=== PATIENT | male | born 1965 | race African-American/Black ===

== ENCOUNTER 2022-10-01 13:58 | Outpatient (REF) | payer BC, SELFPAY ==
[2022-10-01 16:41] LABS: Urine Cytology See Pathology rpt
== END 2022-10-01 13:59 | disposition home or self-care (01) ==
LOC: HO.LAB 13:58
PROVIDERS: PCP Family Medicine; Visit Provider Nurse Practitioner Family
DX: N40.0 Benign prostatic hyperplasia without lower urinary tract symptoms (principal); R33.9 Retention of urine, unspecified; R31.29 Other microscopic hematuria
CPT/HCPCS: 51798; 88112

== ENCOUNTER 2022-11-19 13:53 | Outpatient (REF) | payer BC, SELFPAY ==
--- NOTE | ~2022-11-19 | US_ITS ---
EXAMINATION: US RETROPERITONEAL COMPLETE (RENAL) CLINICAL INFORMATION: Benign prostatic hyperplasia without urinary tract symptoms. COMPARISON: None available. TECHNIQUE: Real-time imaging of the kidneys and bladder. FINDINGS: RIGHT KIDNEY: 13.1 x 6.3 x 6.0 cm (SAG x AP x TRV). The kidney is normal in size, contour, and echogenicity. Renal cortical thickness is normal. No calculi or focal parenchymal lesions. No hydronephrosis. LEFT KIDNEY: 11.4 x 5.9 x 5.8 cm (SAG x AP x TRV). The kidney is normal in size, contour, and echogenicity. Renal cortical thickness is normal. No calculi or focal parenchymal lesions. No hydronephrosis. BLADDER: Well distended and normal. Bilateral ureteral jets are demonstrated. Prevoid bladder volume is 366 mL. Postvoid bladder volume is 92 mL. ADDITIONAL FINDINGS: The prostate is enlarged measuring 60.4 mL. US/US retroperitoneal comp IMPRESSION: 1. Normal-appearing kidneys. 2. Enlarged 60.4 mL prostate with large 92 mL postvoid residual.
== END 2022-11-19 13:54 | disposition home or self-care (01) ==
LOC: HO.US 13:53
PROVIDERS: PCP Family Medicine; Visit Provider Nurse Practitioner Family
DX: N40.0 Benign prostatic hyperplasia without lower urinary tract symptoms (principal)
CPT/HCPCS: 76770

== ENCOUNTER 2022-12-06 09:34 | Outpatient (REF) | payer BC, SELFPAY ==
[2022-12-06 11:03] LABS: Prostate Specific Antigen 3.56 ng/mL (<0.05-4.0)
== END 2022-12-06 09:35 | disposition home or self-care (01) ==
LOC: HO.LAB 09:34
PROVIDERS: PCP Family Medicine; Visit Provider Nurse Practitioner Family
DX: N40.0 Benign prostatic hyperplasia without lower urinary tract symptoms (principal); Z12.5 Encounter for screening for malignant neoplasm of prostate
CPT/HCPCS: 36415; 84153

== ENCOUNTER → 2022-12-24 11:35 | Outpatient (BNVA) | payer BC, SELFPAY | PROVIDERS: PCP Family Medicine; Visit Provider Nurse Practitioner Family | DX: N40.1 Benign prostatic hyperplasia with lower urinary tract symptoms (principal); R33.8 Other retention of urine | CPT/HCPCS: 51798 ==

== ENCOUNTER 2023-04-29 09:15 | Outpatient (REF) | payer BC, SELFPAY ==
[2023-04-29 11:44] LABS: PSA,Total (Free>4and<10) 3.13 ng/mL (0.00-4.00)
== END 2023-04-29 09:16 | disposition home or self-care (01) ==
LOC: HO.LAB 09:15
PROVIDERS: PCP Family Medicine; Visit Provider Nurse Practitioner Family
DX: Z12.5 Encounter for screening for malignant neoplasm of prostate (principal); N40.0 Benign prostatic hyperplasia without lower urinary tract symptoms; R33.9 Retention of urine, unspecified; R31.29 Other microscopic hematuria
CPT/HCPCS: 36415; 51798; 81003; 84153

== ENCOUNTER 2023-04-29 15:36 | Outpatient (AMB) | payer BC, SELFPAY ==
--- NOTE | 2023-04-29 15:49 | A.OFFVIS_ITS ---
Intake Intake Visit Reasons: 4m/PSA Intake Note: Patient is present for follow up BPH/retention/micro hematuria/labs Urology Medications: none Blood Thinner: none PVR: 0ml's Global Compensation Director Required: No Accompanied by: Self / Same As Patient Allergies No Known Allergies Allergy (Verified 04/30/23 15:20) Medication List - Last Reconciled 04/30/23 by ISA Bonilla lisinopril 5 mg PO DAILY meloxicam 15 mg PO DAILY HPI HPI Comments History of Present Illness Details Nile is a pleasant 58 year old male patient of Dr. Peterson. He has a past medical history of BPH, ED, hypertension, and insomnia. He presents to the office today for a follow up of his feelings of incomplete bladder emptying and urinary hesitancy. In discussion with the patient today he reports to be doing and feeling well. Previous workup has included retroperitoneal ultrasound that noted bilateral kidneys with no stones, lesions, and no hydronephrosis. The bladder is well distended and normal. Bilateral ureteral jets are demonstrated. Prevoid bladder volume is 366ml's. Postvoid bladder volume is 92ml's. The prostate is enlarged measuring 60.4ml's. PSAs are as follows: 12/19--3.6. 04/20-- 3.1 He discusses feeling original lower urinary tract symptoms were related to his increase in weight gain and borderline diabetes. He discusses he continues to attempt to lose weight and have healthier eating habits. He has a longstanding family history of prostate cancer. Discussed continuing to monitor verses prostate biopsy. Discussed risks and benefits of surveillance monitoring verses prostate biopsy. At this time patient wishes to continue with surveillance monitoring. He otherwise denies any bothersome urinary issues or concerns at this time. In office urinalysis results reviewed with the patient. PVR-0ml's. PFSH Medical History BPH (benign prostatic hyperplasia) Erectile dysfunction Hypertension Insomnia Internal hemorrhoids Onychomycosis Surgical History History of vasectomy Hx of tonsillectomy Family History Mother Leukemia Father Lung cancer Review of Systems Const Reports as per HPI Eyes Reports no additional complaints ENT Reports no additional complaints Card Reports no additional complaints Resp Reports no additional complaints GI Reports no additional complaints Reports as per HPI Musc Reports no additional complaints Neuro Reports no additional complaints Psych Reports no additional complaints Endo Reports as per HPI Mehdi/Lymph Reports no additional complaints Aller/Immun Reports no additional complaints Physical Exam Const General: cooperative, healthy appearing, comfortable, no acute distress, well developed, alert and awake Nutritional Appearance: overweight Orientation/consciousness: patient oriented x3 Limitations: no limitations HEENT Head: Yes normal to inspection, Yes normocephalic and Yes atraumatic Ears: hearing grossly normal bilaterally Eyes General: appearance normal, both eyes and all related structures Neck Neck: Yes normal visual inspection and Yes trachea midline Chest Chest palpation & inspection: normal inspection of the chest Resp Effort & Inspection: normal respiratory effort and able to speak in complete sentences Cardio Rate: regular rate GI Inspection: Yes normal to inspection Other: TIM- smooth, no indurated areas, nodules, or masses palpated. General: Yes no CVA tenderness Back/Spine/Pelvis Back: no CVA tenderness Neuro General: patient oriented x3 Extrem General: Yes normal to inspection Psych Appearance: grossly normal and well kempt Mental Status: mental status grossly normal Speech and movement: Normal speech and movement present and Clear speech present Affect: normal affect Attitude: cooperative Thought process: Normal thought process present Thought content: Normal thought content present Insight: Good insight present (Psych) Judgement: Good judgement present (Psych) Office Procedures Post Void Residual Post Residual Void Post Void Residual (PVR): 0 [id number] Void Residual by ultrasound Results AMB Urinalysis, Automated UA Leukoctes 0 Yesenia/uL Last Edit by Conrado Blanca on 04/29/23 16:04 UA Nitrite Last Edit by Mirakl Rianna on 04/29/23 16:04 UA Urobilinogen 0.2 mg/dL Last Edit by Mirakl Rianna on 04/29/23 16:04 UA Protein 0 mg/dL Last Edit by [facility] Bl[facility] on 04/29/23 16:04 UA pH 6.5 Last Edit by Conrado Blanca on 04/29/23 16:04 UA Blood 25 [place]/uL Last Edit by [facility] on 04/29/23 16:04 UA Specific [employer] 1.015 Last Edit by Conrado Blanca on 04/29/23 16:04 UA Ketone Negative Last Edit by Conrado Robertobrendan on 04/29/23 16:04 UA Bilirubin 0 mg/dL Last Edit by Conrado Robertobrendan on 04/29/23 16:04 UA Glucose 0 mg/dL Last Edit by Conrado Robertobrendan on 04/29/23 16:04 Results Reviewed Results Reviewed: Laboratory Last Values Urine pH (Auto) 6.5 04/29/23 15:54 Specific [employer] (Auto) 1.015 04/29/23 15:54 Urine Protein (Auto) 0 mg/dL 04/29/23 15:54 Glucose (UA)(Auto) 0 mg/dL 04/29/23 15:54 Urine Ketones (Auto) Negative 04/29/23 15:54 Urine Blood (Auto) 25 [place]/uL 04/29/23 15:54 Urine Bilirubin (Auto) 0 mg/dL 04/29/23 15:54 Urine Urobilinogen (Auto) 0.2 mg/dL 04/29/23 15:54 Leukocyte Esterase (Auto) 0 Yesenia/uL 04/29/23 15:54 Assessment & Plan Assessment & Plan (1) Microscopic hematuria: Code(s): R31.29 - Other microscopic hematuria (2) Enlarged prostate: Code(s): N40.0 - Benign prostatic hyperplasia without lower urinary tract symptoms Plan In office urinalysis results reviewed with the patient today; as noted above; microscopic hematuria noted however cytology from last office visit 12/19--Negative for high-grade urothelial carcinoma. Recent PSA results reviewed with the patient today; as noted above. Discussed surveillance monitoring versus prostate biopsy in the setting of family history of prostate cancer in PSA ranging between 3.6 and 3.1. Will continue with surveillance monitoring Patient denies any bothersome urinary issues or concerns at this time. PSA in 6 months Follow-up in 6 months with lab to be completed prior; or sooner with any issues, concerns, and or questions. Orders: Orders PSA,Total (Free>4and<10) 6 Months N40.0 - Benign prostatic hyperplasia without lower urinary tract symptoms, R97.20 - Elevated prostate specific antigen [PSA] AMB Urinalysis Automated 04/29/23 Z13.9 - Encounter for screening, unspecified AMB Post Void Residual by ultrasound 04/29/23 R33.9 - Retention of urine, unspecified Patient Instructions: The patient had an opportunity to ask questions regarding the treatment plan. All questions were answered. Physical exam, labs, and imaging were discussed and reviewed in detail. As well as risks, benefits, and discussion of treatment choices. No major barriers to understanding were identified. The patient expressed understanding and agreement with the above treatment plan. The patient was made aware they should contact our office by phone for worsening of their current condition, the appearance of new symptoms, or with any questions or concerns. Compliance is encouraged with any medications and follow up testing that is ordered. It is a privilege to be allowed the opportunity to participate in? your urological care.? Again, if you have any questions or concerns If you have any questions or concerns please do not hesitate to contact me. The office is [phone]. This note is constructed using voice recognition software. While every effort has been made to ensure accuracy senior production supervisor errors may have been included. Yours sincerely, ISA Bonilla Coding Level of Care Code Est Pt Level 3 (49320) Diagnoses Microscopic hematuria R31.29 Enlarged prostate N40.0 CPT Codes Post Residual Void - PVR CPT Code: 42937-Wnjj Void Residual by ultrasound ([id number])
== END 2023-04-29 16:31 | disposition home or self-care (01) ==
PROVIDERS: PCP Family Medicine; Visit Provider Nurse Practitioner Family
DX: R31.29 Other microscopic hematuria (principal); N40.0 Benign prostatic hyperplasia without lower urinary tract symptoms
CPT/HCPCS: 99213

== ENCOUNTER 2023-10-31 10:40 | Outpatient (AMB) | payer BC, SELFPAY ==
--- NOTE | 2023-10-31 10:51 | A.OFFVIS_ITS ---
Intake Intake Visit Reasons: 6m/PVR Intake Note: Patient presents today for follow up BPH/retention/micro hematuria/labs PSA: 3.7 Urology Medications: none Blood Thinner: none PVR: 21ml's Biometrics Specialist Required: No Accompanied by: Self / Same As Patient Allergies No Known Allergies Allergy (Verified 10/31/23 21:24) Medication List - Last Reconciled 10/31/23 by STEVE Bonilla- lisinopril 5 mg PO DAILY meloxicam 15 mg PO DAILY HPI HPI Comments History of Present Illness Details Nile is a pleasant 58 year old male patient of Dr. Peterson. He has a past medical history of BPH, ED, hypertension, and insomnia. He presents to the office today for a follow up of his feelings of incomplete bladder emptying and urinary hesitancy. In discussion with the patient today he reports to be doing and feeling well. Recent PSA results reviewed with the patient today and trended below. Previous workup has included retroperitoneal ultrasound that noted bilateral kidneys with no stones, lesions, and no hydronephrosis. The bladder is well distended and normal. Bilateral ureteral jets are demonstrated. Prevoid bladder volume is 366ml's. Postvoid bladder volume is 92ml's. The prostate is enlarged measuring 60.4ml's. PSAs are as follows: 12/19--3.6. 04/20--3.1 10/22--3.7 He discusses feeling original lower urinary tract symptoms were related to his increase in weight gain and borderline diabetes. He discusses how he continues to attempt to lose weight and have healthier eating habits. He also discusses going to the gym 3-5 times per week. He has a longstanding family history of prostate cancer. Discussed at length potential causes of elevated PSA. Discussed continuing to monitor verses prostate biopsy verses attempting to obtain MRI for further assessment evaluation. Discussed risks and benefits of these treatment options. He does report at times to have nocturia and urinary frequency however feels these symptoms very and do not find them bothersome at this time. He otherwise denies incontinence, hematuria, dysuria, foul smelling urine, changes to urinary stream, flank pain, fever, and or chills. He is happy with his current voiding parameters. In office urinalysis results reviewed with the patient. Microscopic hematuria noted; urine cytology 10/21--Negative for high- grade urothelial carcinoma. PVR-21ml's. TIM offered however deferred. [facility] Medical History Onychomycosis Erectile dysfunction Internal hemorrhoids Insomnia Hypertension BPH (benign prostatic hyperplasia) Surgical History History of vasectomy Hx of tonsillectomy Family History Mother Leukemia Father Lung cancer Review of Systems Const Reports as per HPI Eyes Reports no additional complaints ENT Reports no additional complaints Card Reports no additional complaints Resp Reports no additional complaints GI Reports no additional complaints Reports as per HPI Musc Reports no additional complaints Neuro Reports no additional complaints Psych Reports no additional complaints Endo Reports as per HPI Mehdi/Lymph Reports no additional complaints Aller/Immun Reports no additional complaints Physical Exam Const General: cooperative, healthy appearing, comfortable, no acute distress, well developed, alert and awake Nutritional Appearance: overweight Orientation/consciousness: patient oriented x3 Limitations: no limitations HEENT Head: Yes normal to inspection, Yes normocephalic and Yes atraumatic Ears: hearing grossly normal bilaterally Eyes General: appearance normal, both eyes and all related structures Neck Neck: Yes normal visual inspection and Yes trachea midline Chest Chest palpation & inspection: normal inspection of the chest Resp Effort & Inspection: normal respiratory effort and able to speak in complete sentences Cardio Rate: regular rate GI Inspection: Yes normal to inspection Other: TIM- smooth, no indurated areas, nodules, or masses palpated. General: Yes no CVA tenderness Back/Spine/Pelvis Back: no CVA tenderness Neuro General: patient oriented x3 Extrem General: Yes normal to inspection Psych Appearance: grossly normal and well kempt Mental Status: mental status grossly normal Speech and movement: Normal speech and movement present and Clear speech present Affect: normal affect Attitude: cooperative Thought process: Normal thought process present Thought content: Normal thought content present Insight: Fair insight present (Psych) Judgement: Fair judgement present (Psych) Office Procedures Post Void Residual Post Residual Void Post Void Residual (PVR): [id number] Void Residual by ultrasound Results AMB Urinalysis, Automated UA Leukoctes 0 [place]/uL Last Edit by Conrado Blanca on 10/31/23 11:15 UA Nitrite Negative Last Edit by Conrado Blanca on 10/31/23 11:15 UA Urobilinogen 0.2 mg/dL Last Edit by Conrado Blanca on 10/31/23 11:15 UA Protein 15 mg/dL Last Edit by Conrado Blanca on 10/31/23 11:15 UA pH 6.0 Last Edit by Conrado Blacna on 10/31/23 11:15 UA Blood 25 [place]/uL Last Edit by Conrado Blanca on 10/31/23 11:15 UA Specific [employer] 1.020 Last Edit by Conrado Blanca on 10/31/23 11:15 UA Ketone Negative Last Edit by Conrado Blanca on 10/31/23 11:15 UA Bilirubin 0 mg/dL Last Edit by Conrado Blanca on 10/31/23 11:15 UA Glucose 0 mg/dL Last Edit by Conrado Blanca on 10/31/23 11:15 Results Reviewed Results Reviewed: Laboratory Last Values Urine pH (Auto) 6.0 10/31/23 10:52 Specific [employer] (Auto) 1.020 10/31/23 10:52 Urine Protein (Auto) 15 mg/dL 10/31/23 10:52 Glucose (UA)(Auto) 0 mg/dL 10/31/23 10:52 Urine Ketones (Auto) Negative 10/31/23 10:52 Urine Blood (Auto) 25 [place]/uL 10/31/23 10:52 Urine Nitrite (Auto) Negative 10/31/23 10:52 Urine Bilirubin (Auto) 0 mg/dL 10/31/23 10:52 Urine Urobilinogen (Auto) 0.2 mg/dL 10/31/23 10:52 Leukocyte Esterase (Auto) 0 Yes[place]/uL 10/31/23 10:52 Assessment & Plan Assessment & Plan (1) Enlarged prostate: Code(s): N40.0 - Benign prostatic hyperplasia without lower urinary tract symptoms (2) Elevated PSA: Code(s): R97.20 - Elevated prostate specific antigen [PSA] Plan In office urinalysis results reviewed with the patient today; as noted above PVR 21 mL. Discussed at length potential causes for elevated PSA Discussed further treatment options with surveillance monitoring verses prostate biopsy verses MRI of the prostate; risks and benefits of these interventions were discussed at length. Will obtain redraw of PSA with no sex the night before, no caffeine morning of, no heavy lifting 1-2 days prior. Will attempt to obtain MRI of the prostate for further assessment evaluation. Patient currently denies any bothersome urinary issues or concerns. TIM offered however deferred. Follow-up in 1-2 months with imaging and labs to be completed prior; or sooner with any issues, concerns, and or questions Orders: Orders AMB Urinalysis Automated Today Z13.9 - Encounter for screening, unspecified AMB Post Void Residual by ultrasound Today R33.9 - Retention of urine, unspecified Prostate Specific Antigen Today N40.0 - Benign prostatic hyperplasia without lower urinary tract symptoms MR pelvis wo/w con Today N40.0 - Benign prostatic hyperplasia without lower urinary tract symptoms, R97.20 - Elevated prostate specific antigen [PSA] Urine Cytology Today R31.29 - Other microscopic hematuria Patient Instructions: The patient had an opportunity to ask questions regarding the treatment plan. All questions were answered. Physical exam, labs, and imaging were discussed and reviewed in detail. As well as risks, benefits, and discussion of treatment choices. No major barriers to understanding were identified. The patient expressed understanding and agreement with the above treatment plan. The patient was made aware they should contact our office by phone for worsening of their current condition, the appearance of new symptoms, or with any questions or concerns. Compliance is encouraged with any medications and follow up testing that is ordered. It is a privilege to be allowed the opportunity to participate in? your urological care.? Again, if you have any questions or concerns If you have any questions or concerns please do not hesitate to contact me. The office is [phone]. This note is constructed using voice recognition software. While every effort has been made to ensure accuracy pillowcase cutter errors may have been included. Yours sincerely, ISA Bonilla Coding Level of Care Code Est Pt Level 4 (04460) Diagnoses Enlarged prostate N40.0 Elevated PSA R97.20 CPT Codes Post Residual Void - PVR CPT Code: 88628-Wbnz Void Residual by ultrasound ([id number]) Time Spent (min) 35
== END 2023-10-31 11:31 | disposition home or self-care (01) ==
PROVIDERS: PCP Family Medicine; Visit Provider Nurse Practitioner Family
DX: N40.0 Benign prostatic hyperplasia without lower urinary tract symptoms (principal); R97.20 Elevated prostate specific antigen [PSA]
CPT/HCPCS: 99214

== ENCOUNTER 2023-10-31 10:40 | Outpatient (REF) | payer BC, SELFPAY ==
[2023-10-31 16:36] LABS: Urine Cytology See Pathology rpt
== END 2023-10-31 10:41 | disposition home or self-care (01) ==
LOC: HO.LNP 10:40
PROVIDERS: PCP Family Medicine; Visit Provider Nurse Practitioner Family
DX: N40.0 Benign prostatic hyperplasia without lower urinary tract symptoms (principal); R97.20 Elevated prostate specific antigen [PSA]; R31.29 Other microscopic hematuria
CPT/HCPCS: 51798; 81003; 88112

== ENCOUNTER 2023-11-24 13:57 | Outpatient (AMB) | payer BC, SELFPAY ==
--- NOTE | 2023-11-24 14:29 | MHC.OFFVIS ---
Intake Intake Visit Reasons: 1m/MRI/PSA Intake Note: Patient presents today for a follow up on MRI/PSA Meds- D/C Meloxicam Allergies to Antibiotic- No Known Allergies Blood Thinner- None Post Void Residual: initial 239 however patient second attempt to void 0ml's Print Decorator Required: No Accompanied by: Allergies No Known Allergies Allergy (Verified 11/24/23 21:30) Medication List - Last Reconciled 11/24/23 by STEVE Bonilla- lisinopril 5 mg PO DAILY sulfamethoxazole-trimethoprim 800-160 mg (Bactrim DS) 1 tab PO BID 14 days HPI HPI Comments History of Present Illness Details Nile is a pleasant 58 year old male patient of Dr. Peterson who was accompanied by his at today's office visit. He has a past medical history of BPH, ED, hypertension, and insomnia. He presents to the office today for a follow up of his feelings of incomplete bladder emptying, urinary hesitancy and elevated PSA. Of note, patient was seen approximately 3 weeks ago at which time a MRI of the prostate was ordered as well as redraw of PSA was ordered for further assessment evaluation. These results reviewed with the patient today. Minimal scattered linear and wedge-shaped areas T2 hypointensity without corresponding was significant restricted diffusion are most compatible with changes of chronic prostatitis. No masslike lesion or areas of significant restricted diffusion or abnormal perfusion are appreciated. Small indeterminate lesion in the left transitional zone base PI-RADS 3. PSAs are as follows: 12/19--3.6. 04/20--3.1 10/22--3.7 11/19--9.2 In discussion with the patient today he reports to be doing and feeling well. Previous workup has included retroperitoneal ultrasound that noted bilateral kidneys with no stones, lesions, and no hydronephrosis. The bladder is well distended and normal. Bilateral ureteral jets are demonstrated. Prevoid bladder volume is 366ml's. Postvoid bladder volume is 92ml's. The prostate is enlarged measuring 60.4ml's. He reports noting ongoing feelings of incomplete bladder emptying and urinary hesitancy. However, he reports since his last office visit here approximately 2 weeks ago he has been experiencing increased episodes of urinary urgency and frequency as well as nocturia. Discussed bump in PSA. Discussed at length potential causes for elevated PSA. Discussed bump in PSA likely related to prostatitis given recent increase in lower urinary tract symptoms. He discusses going to the gym 3-5 times per week however has recently strained his back and has since been on prednisone. Discussed further treatment options of elevated PSA with targeted prostate biopsy verses surveillance monitoring. Discuss treatment for presumed prostatitis. He otherwise denies incontinence, hematuria, dysuria, foul smelling urine, changes to urinary stream, flank pain, fever, and or chills. He is happy with his current voiding parameters. In office urinalysis results reviewed with the patient. PVR 0ml's. TIM offered however deferred. He does report a family history of prostate cancer. He otherwise offers no other issues or concerns at this time. [facility] Medical History Onychomycosis Erectile dysfunction Internal hemorrhoids Insomnia Hypertension BPH (benign prostatic hyperplasia) Surgical History History of vasectomy Hx of tonsillectomy Family History Mother Leukemia Father Lung cancer Review of Systems Const Reports as per HPI Eyes Reports no additional complaints ENT Reports no additional complaints Card Reports no additional complaints Resp Reports no additional complaints GI Reports no additional complaints Reports as per HPI Musc Reports no additional complaints Neuro Reports no additional complaints Psych Reports no additional complaints Endo Reports as per HPI Mehdi/Lymph Reports no additional complaints Aller/Immun Reports no additional complaints Physical Exam Const General: cooperative, healthy appearing, comfortable, no acute distress, well developed, alert and awake Nutritional Appearance: overweight Orientation/consciousness: patient oriented x3 Limitations: no limitations HEENT Head: Yes normal to inspection, Yes normocephalic and Yes atraumatic Ears: hearing grossly normal bilaterally Eyes General: appearance normal, both eyes and all related structures Neck Neck: Yes normal visual inspection and Yes trachea midline Chest Chest palpation & inspection: normal inspection of the chest Resp Effort & Inspection: normal respiratory effort and able to speak in complete sentences Cardio Rate: regular rate GI Inspection: Yes normal to inspection Other: TIM- smooth, no indurated areas, nodules, or masses palpated. General: Yes no CVA tenderness Back/Spine/Pelvis Back: no CVA tenderness Neuro General: patient oriented x3 Extrem General: Yes normal to inspection Psych Appearance: grossly normal and well kempt Mental Status: mental status grossly normal Speech and movement: Normal speech and movement present and Clear speech present Affect: normal affect Attitude: cooperative Thought process: Normal thought process present Thought content: Normal thought content present Insight: Fair insight present (Psych) Judgement: Fair judgement present (Psych) Office Procedures Post Void Residual Post Residual Void Post Void Residual (PVR): [id number] Void Residual by ultrasound Results AMB Urinalysis, Automated UA Leukoctes 0 Yesenia/uL Last Edit by Nini Ch [facility] on 11/24/23 14:51 UA Nitrite Negative [facility] on 11/24/23 14:51 UA Urobilinogen 0.2 mg/dL Last Edit by Nini Chdana Ch [facility] on 11/24/23 14:51 UA Protein 0 mg/dL Last Edit by Nini Chadna Ch [facility] on 11/24/23 14:51 UA pH 6.5 [facility] on 11/24/23 14:51 UA Blood 10 [place]/uL Last Edit by Nini Chdana Ch [facility] on 11/24/23 14:51 UA Specific [place] 1.015 Last Edit by Nini Chdana Ch [facility] on 11/24/23 14:51 UA Ketone Negative Last Edit by Nini Chdana Ch [facility] on 11/24/23 14:51 UA Bilirubin 0 mg/dL [facility] on 11/24/23 14:51 UA Glucose 0 mg/dL Last Edit [facility], [facility] on 11/24/23 14:51 Results Reviewed Results Reviewed: Laboratory Last Values Urine pH (Auto) 6.5 11/24/23 14:43 Specific [place] (Auto) 1.015 11/24/23 14:43 Urine Protein (Auto) 0 mg/dL 11/24/23 14:43 Glucose (UA)(Auto) 0 mg/dL 11/24/23 14:43 Urine Ketones (Auto) Negative 11/24/23 14:43 Urine Blood (Auto) 10 [place]/uL 11/24/23 14:43 Urine Nitrite (Auto) Negative 11/24/23 14:43 Urine Bilirubin (Auto) 0 mg/dL 11/24/23 14:43 Urine Urobilinogen (Auto) 0.2 mg/dL 11/24/23 14:43 Leukocyte Esterase (Auto) 0 Yesenia/uL 11/24/23 14:43 Assessment & Plan Assessment & Plan (1) Elevated PSA: Code(s): R97.20 - Elevated prostate specific antigen [PSA] (2) Enlarged prostate: Code(s): N40.0 - Benign prostatic hyperplasia without lower urinary tract symptoms (3) Prostatitis: Code(s): N41.9 - Inflammatory disease of prostate, unspecified (4) History of urinary hesitancy: Code(s): Z87.898 - Personal history of other specified conditions (5) Nocturia: Code(s): R35.1 - Nocturia (6) Urinary frequency: Code(s): R35.0 - Frequency of micturition (7) Lower urinary tract symptoms: Code(s): R39.9 - Unspecified symptoms and signs involving the genitourinary system (8) Family history of prostate cancer: Code(s): Z80.42 - Family history of malignant neoplasm of prostate Plan: Risks, benefits and alternatives to therapy were discussed. These include but are not limited to infection, bleeding, damage to local organs and tissues, need for further interventions. ? Anesthetic risks regarding cardiac arrhythmia, blood clots, and potential mortality were discussed. The patient understands the typical recovery time and the outpatient nature of the procedure. After consideration of these risks the patient gives full informed consent and they wish to move ahead with the procedure. Plan In office urinalysis results reviewed with the patient today; as noted above. PVR 0 mL. Recent MRI results reviewed with the patient today; as noted above. Recent PSA results reviewed with the patient today; as noted above. Start Bactrim as discussed and prescribed. TIM offered however deferred. Discussed at length further treatment options for elevated PSA with surveillance monitoring verses targeted prostate biopsy; risks and benefits of these interventions were discussed. All questions were answered. Will schedule for targeted prostate biopsy Will obtain PSA 6 weeks status post completion of antibiotic therapy Follow-up in 2 months with PSA to be completed prior; or sooner with any issues, concerns, and or questions. Orders: Orders AMB Urinalysis Automated Today R33.9 - Retention of urine, unspecified PSA,Total (Free>4and<10) Today N41.9 - Inflammatory disease of prostate, unspecified, R97.20 - Elevated prostate specific antigen [PSA] AMB Post Void Residual by ultrasound Today R33.9 - Retention of urine, unspecified Medications: New sulfamethoxazole-trimethoprim 800-160 mg (Bactrim DS) 1 tab PO BID 14 days 28 tabs 0RF N39.0 - Urinary tract infection, site not specified Patient Instructions: The patient had an opportunity to ask questions regarding the treatment plan. All questions were answered. Physical exam, labs, and imaging were discussed and reviewed in detail. As well as risks, benefits, and discussion of treatment choices. No major barriers to understanding were identified. The patient expressed understanding and agreement with the above treatment plan. The patient was made aware they should contact our office by phone for worsening of their current condition, the appearance of new symptoms, or with any questions or concerns. Compliance is encouraged with any medications and follow up testing that is ordered. It is a privilege to be allowed the opportunity to participate in? your urological care.? Again, if you have any questions or concerns If you have any questions or concerns please do not hesitate to contact me. The office is [phone]. This note is constructed using voice recognition software. While every effort has been made to ensure accuracy quarry supervisor dimension stone errors may have been included. Yours sincerely, STEVE Bonilla- Coding Level of Care Code Est Pt Level 4 (49197) Diagnoses Elevated PSA R97.20 Enlarged prostate N40.0 Prostatitis N41.9 History of urinary hesitancy Z87.898 Nocturia R35.1 Urinary frequency R35.0 Lower urinary tract symptoms R39.9 Family history of prostate cancer Z80.42 CPT Codes Post Residual Void - PVR CPT Code: 96622-Pzti Void Residual by ultrasound ([id number])
== END 2023-11-24 15:16 | disposition home or self-care (01) ==
PROVIDERS: PCP Family Medicine; Visit Provider Nurse Practitioner Family
DX: R97.20 Elevated prostate specific antigen [PSA] (principal); N40.0 Benign prostatic hyperplasia without lower urinary tract symptoms; N41.9 Inflammatory disease of prostate, unspecified; Z87.898 Personal history of other specified conditions; R35.1 Nocturia; R35.0 Frequency of micturition; R39.9 Unspecified symptoms and signs involving the genitourinary system; Z80.42 Family history of malignant neoplasm of prostate
CPT/HCPCS: 99214

== ENCOUNTER → 2023-11-24 13:57 | Outpatient (BNVA) | payer BC, SELFPAY | PROVIDERS: PCP Family Medicine; Visit Provider Nurse Practitioner Family | DX: R97.20 Elevated prostate specific antigen [PSA] (principal); N40.1 Benign prostatic hyperplasia with lower urinary tract symptoms; R35.1 Nocturia; R35.0 Frequency of micturition; R33.8 Other retention of urine; N41.9 Inflammatory disease of prostate, unspecified; R39.9 Unspecified symptoms and signs involving the genitourinary system; Z80.42 Family history of malignant neoplasm of prostate | CPT/HCPCS: 51798; 81003 ==

== ENCOUNTER 2024-01-20 11:15 | Outpatient (AMB) | payer BC, SELFPAY ==
--- NOTE | 2024-01-20 11:16 | A.OFFVIS_ITS ---
Intake Visit Reasons: H&P Targeted Prostate Biopsy Intake Note: Patient is Present for Telephone Follow Up h&p Urology Med: Antibiotic Allergy: Cipro, Bactrim Blood Thinner:None Allergies ciprofloxacin Allergy (Severe, Verified 02/14/24 09:49) Rash bactrim Allergy (Severe, Uncoded 02/14/24 09:49) Hives HPI Comments Details: Nile is a pleasant male. He has a patient of Dr Peterson. He is seen for the following urologic conditions - lower urinary tract symptoms - elevated PSA Telemedicine Evaluation 15 min Consultation Doximity Jessica Video Discussion about targeted prostate biopsy. Risks and benefits discussed. Particular focus paid on prostate infection Lower urinary tract symptoms Primarily feelings of incomplete bladder emptying, urinary hesitancy Not Current medications Elevated PSA PSA 04/20 3.1, 11/19 9.2 Prostate MRI performed - small indeterminate lesion in left transition zone PI-RADS 3. Wedge shape areas T2 hypointensity most compatible with chronic prostatitis Prostate enlarged measuring 60 cc Plan for prostate biopsy PFSH Medical History Onychomycosis Erectile dysfunction Internal hemorrhoids Insomnia Hypertension BPH (benign prostatic hyperplasia) Surgical History (Updated 01/30/24 @ 08:48 by Isidra Atkins RN) H/O colonoscopy History of vasectomy Hx of tonsillectomy Family History Mother Leukemia Father Lung cancer Social History Patient Tobacco Use Status: Current someday Tobacco user Tobacco use type: Cigar Review of Systems Const All systems reviewed & are unremarkable except as noted in HPI and below Reports no additional complaints Resp Reports no additional complaints GI Reports no additional complaints Reports as per HPI Musc Reports no additional complaints Physical Exam Telemedicine evaluation Appropriate responses Regular breathing rate and rhythm HEENT Head: Yes normal to inspection Ears: hearing grossly normal bilaterally Eyes General: appearance normal, both eyes and all related structures Neck Neck: Yes normal visual inspection Chest Chest palpation & inspection: normal inspection of the chest Resp Effort & Inspection: normal respiratory effort and able to speak in complete sentences Telehealth Telehealth Telehealth Platform: [email or web address] Location of provider rendering services: practice address Location of patient: address on file Patient Identification confirmed using: Name, : Yes Telehealth method: video Patient verbally consented to treatment: Yes Patient verbally consented to billing insurance company: Yes Patient informed of any privacy concerns related to visit: Yes Minutes spent on Phone/Video with Pt.: 15 Assessment & Plan Assessment & Plan (1) Elevated PSA: Code(s): R97.20 - Elevated prostate specific antigen [PSA] Category: Medical (2) Prostatitis: Code(s): N41.9 - Inflammatory disease of prostate, unspecified Category: Medical Plan Targeted prostate biopsy Patient Instructions: Imaging studies, laboratory and physical exam results were discussed and reviewed in detail. No major barriers to patient understanding were identified. An opportunity to ask questions regarding the treatment plan was provided. All questions were answered. The patient expressed understanding and agreement with the above treatment plan. The patient is aware they should contact our office by phone for worsening of their current condition or the appearance of new urologic symptoms. Compliance is encouraged with any medications and followup testing that is ordered. It is a privilege to participate in the urologic care of your patient. If you have any questions or concerns regarding treatment for the above conditions, or other urologic issues, please do not hesitate to contact me. The office telephone contact is [phone]. This note is constructed using voice recognition software. While every effort has been made to ensure accuracy website project manager errors may have been included. Yours sincerely, Dr Aaron Tena MD, [facility] - Urology Providers of Expert, Compassionate Care for the Genitourinary System Coding Level of Care Code Tele Est Pt Level 3 (82431) Diagnoses Elevated PSA R97.20 Prostatitis N41.9
== END 2024-01-20 12:00 | disposition home or self-care (01) ==
LOC: HO.HUSH 11:15
PROVIDERS: PCP Family Medicine; Visit Provider Urology
DX: R97.20 Elevated prostate specific antigen [PSA] (principal); N41.9 Inflammatory disease of prostate, unspecified
CPT/HCPCS: 99213

== ENCOUNTER → 2024-01-20 11:15 | Outpatient (BNVA) | payer BC, SELFPAY | PROVIDERS: PCP Family Medicine; Visit Provider Urology ==

== ENCOUNTER 2024-01-30 08:15 | Day surgery (SDC) | payer BC, SELFPAY ==
--- NOTE | 2024-01-26 12:06 | HO.ANESPROP2 ---
Documented by User: Mary Iyer NP 01/26/24 12:06 HPI - Anesthesia Eval Consult details Narrative: 58yo M for Targeted Prostate Needle Biopsy PMFSH Active Problems Active Problems: All Active Problems Family history of prostate cancer (Acute) Lower urinary tract symptoms (Acute) Urinary frequency (Acute) Nocturia (Acute) History of urinary hesitancy (Acute) Prostatitis (Acute) Elevated PSA (Acute) Enlarged prostate (Acute) Foul smelling urine (Acute) Microscopic hematuria (Acute) Incomplete bladder emptying (Acute) BPH (benign prostatic hyperplasia) (Acute) Past Medical History Medical History Onychomycosis Erectile dysfunction Internal hemorrhoids Insomnia Hypertension BPH (benign prostatic hyperplasia) Family History Family History Mother Leukemia Father Lung cancer Surgical History Surgical History (Updated 01/30/24 @ 08:48 by Isidra Atkins, DANILO) H/O colonoscopy History of vasectomy Hx of tonsillectomy Social History Social History Patient Tobacco Use Status: Current someday Tobacco user Tobacco use type: Cigar Use of substances other than those prescribed or required for medical reasons: No Are you DNR?: No Advance Directives: No Advance Directives Information Provided: Yes Meds Allergies Allergy/AdvReac Type Severity Reaction Status Date / Time ciprofloxacin Allergy Severe Rash Verified 01/30/24 09:09 bactrim Allergy Severe Hives Uncoded 12/14/23 09:48 Home Medications ?Medication ?Instructions ?Recorded ?Confirmed ?Last Taken ?Type lisinopril 5 mg tablet 5 mg PO DAILY 09/30/22 01/30/24 Unknown History Assessment and Plan Assessment Anesthesia Assessment: Chart Reviewed Documented by User: Santiago Nascimento MD 01/30/24 09:49 PMFSH Past Medical History Medical History Onychomycosis Erectile dysfunction Internal hemorrhoids Insomnia Hypertension BPH (benign prostatic hyperplasia) Family History Family History Mother Leukemia Father Lung cancer Family history of problems with anesthesia: No Surgical History Surgical History (Updated 01/30/24 @ 08:48 by Isidra Atkins RN) H/O colonoscopy History of vasectomy Hx of tonsillectomy History of Problems with Anesthesia: No Social History Social History Patient Tobacco Use Status: Current someday Tobacco user Tobacco use type: Cigar Use of substances other than those prescribed or required for medical reasons: No Are you DNR?: No Advance Directives: No Advance Directives Information Provided: Yes Meds Allergies Allergy/AdvReac Type Severity Reaction Status Date / Time ciprofloxacin Allergy Severe Rash Verified 01/30/24 09:09 bactrim Allergy Severe Hives Uncoded 12/14/23 09:48 Home Medications ?Medication ?Instructions ?Recorded ?Confirmed ?Last Taken ?Type lisinopril 5 mg tablet 5 mg PO DAILY 09/30/22 01/30/24 Unknown History Exam Airway Mallampati Class: II TM Dist: <=3cm Neck ROM: Full Loose/Missing/Broken Teeth: No Heart: ok Lungs: ok Assessment and Plan Assessment Anesthesia Assessment: Anesthesia Plan Discussed Final Anesthetic Review Family History of Problems with Anesthesia: No History of Problems with Anesthesia: No NPO: Yes ASA Class: II Final Preanesthetic Review: No Changes in Pt Med Stat, Meds/Allgs Chart Reviewed, Consent Obtained/Reviewed and Anes Risks/Benef Reviewed Patient Risk: Intermediate Procedure Risk: Low Anesthetic Plan Anesthetic Plan: GA and Agree w/ Assess. and Plan Disposition: Standard PACU
[2024-01-30 08:48] VITALS: BMI 34.7
[2024-01-30 08:53] VITALS: BP 149/115; PULSE 73; RESP 15; TEMP 36.3; O2SAT 96
[2024-01-30] MEDS: levoFLOXacin 500 MG TABLET PO (09:03)
[2024-01-30] MEDS: Lactated Ringers 1,000 ML 100 ML IVCONT (09:07)
--- NOTE | 2024-01-30 09:55 | MHC.SHP ---
Pre-Procedural Eval Section A - 24 Hr Update-Section A only Date of Service: 01/30/24 The patient is an INPATIENT: No Changes since office visit: Yes Cold of Flu in the past 2 weeks, Yes New Medical Problems, Yes Changes in Medication and Yes Patient answered all questions The patient has been examined within 24 hours of the surgical procedure. The History & Physical has been completed within 30 days and I have reviewed it.: Yes Section B - Complete if H&P > 30 days Chief Complaint: Elevated prostate specific antigen [PSA] Details of Present Illness: 1.1 left medial base pirads 3 Relevant Social History: None Present Medications: None Medical History: No relevant PMH History of Previous Operations: No relevant previous surgery Allergies: Allergies Allergy/AdvReac Type Severity Reaction Status Date / Time ciprofloxacin Allergy Severe Rash Verified 01/30/24 09:09 bactrim Allergy Severe Hives Uncoded 12/14/23 09:48 Review of Systems Sugical H&P ROS: Negative: Constitution, Cardiovascular, Respiratory, Neurological, Psychiatric, Hem-Onc, Allergic/Immunologic, Gastrointestinal, Genitourinary, Musculoskeletal, Integumentary, Endocrine and Eyes/Ears/Nose/Throat Exam Surgical H&P Exam: Normal: HEENT, Normal: Heart, Normal: Lungs, Normal: Extremities, Normal: Abdomen, Normal: Skin and Normal: Neurological Plan Diagnosis/Plan: Unchanged I have reviewed the history and physical and performed a pertinent physical examination on my patient. No changes have occurred unless specified. Time Spent With Patient Time: Total time managing care of this patient today ____ minutes.
--- NOTE | 2024-01-30 10:41 | P.OP_ITS ---
Operative Note Operative Note Date of Service: 01/30/24 Narrative: Preoperative diagnosis: Elevated PSA Postoperative diagnosis: Elevated PSA Procedure: 1. transrectal ultrasound-guided pudendal nerve block 2. MRI-US fusion image registration performed 3. transperineal ultrasound-guided prostate biopsy 13 core including targets Surgeon: Dr. Aaron Tena Anesthetic: Sedation plus local Indications for procedure: Elevated PSA jump to 9 - Volu 69cc - PiRADS 3 left TZ lesion Procedure: After informed consent was verified, the patient was brought into the procedure area. Patient identity confirmed. Perioperative antibiotics confirmed. Safety pause time out performed. Anesthesia performed per protocol. Scrotum taped out of operative area. Iodine prep used. Perineal injection of local anesthetic. Digital guided prostate pudendal nerve block performed with 10 cc of 1% lidocaine. 5cc each side. Combination 10cc iodine with 50cc gel was mixed and placed in the rectum. Ultrasound probe was placed per rectum. Ultrasound probe stabilized on a prostate stepper with attached grid. [employer] software and hardware platform used for US image acquisition, US 3D model creation and MRI-US fusion image overlay. Ultrasound placement was made with external grid calibration for height and prostate diameter in both the transverse and longitudinal planes. Grid A-C covering right prostate and c-F covering left prostate. Numbers 1.0-2.5 covering posterior prostate and 2.5-4.0 covering anterior prostate. Once grid calibration was confirmed prostate ultrasound data acquisition was performed in the transverse fashion. The US images were registered to create model boundaries. A three dimensional ultrasound model was created using [employer] software. The model was reviewed against acquired US images. The planned needle targeting, based on prior acquisition of MRI imaging, was overlaid on the ultrasound images and targets confirmed through ultrasound review. Adjustments were then made between real time and projected model targeting locations. Based on pre-planning evaluation 13 targets had been identified. These included Pirads 3 lesion Left TZ mid identified lesion/s. He tolerated the procedure well. Was transferred to stable condition in the PACU. Printed instructions regarding antibiotic use and common side effects such as low-grade temperature, potential infection and bleeding were given Pathology: 13 prostate biopsy CPT 73860 Modifier 22 for complexity of procedure execution (Perineal prostate biopsy) CPT 56965 US/MRI target fusion and manipulation in realtime
[2024-01-30 10:46] VITALS: BP 110/77; PULSE 96; RESP 18; TEMP 36.4; O2SAT 96
[2024-01-30 10:51] VITALS: BP 127/89; PULSE 94; RESP 18; O2SAT 96
[2024-01-30 10:56] VITALS: BP 120/93; PULSE 92; RESP 18; O2SAT 97
[2024-01-30 11:01] VITALS: BP 126/93; PULSE 87; RESP 18; O2SAT 97
== END 2024-01-30 12:08 | disposition home or self-care (01) ==
PROVIDERS: PCP Family Medicine; Visit Provider Urology
PROC: (CPT 55700; principal; 2024-01-30 09:30)
DX: R97.20 Elevated prostate specific antigen [PSA] (principal); N40.0 Benign prostatic hyperplasia without lower urinary tract symptoms; I10 Essential (primary) hypertension; Z88.1 Allergy status to other antibiotic agents
CPT/HCPCS: 55700; 88305; J2704; J3010

== ENCOUNTER → 2024-01-30 08:15 | Outpatient (BNV) | payer BC, SELFPAY | PROVIDERS: PCP Family Medicine; Visit Provider Urology | DX: R97.20 Elevated prostate specific antigen [PSA] (principal) | CPT/HCPCS: 55700; 76942 ==

== ENCOUNTER 2024-02-14 09:47 | Outpatient (AMB) | payer BC, SELFPAY ==
--- NOTE | 2024-02-14 09:48 | MHC.OFFVIS ---
Intake Visit Reasons: Prostate Biopsy results Intake Note: Patient is Present for Telephone Follow Up Biopsy Results Urology Med: None Antibiotic Allergy:Bactrim, Cipro Blood Thinner:None Allergies ciprofloxacin Allergy (Severe, Verified 02/14/24 09:49) Rash bactrim Allergy (Severe, Uncoded 02/14/24 09:49) Hives Medication List - Last Reconciled 02/14/24 by Aaron Tena MD lisinopril 5 mg PO DAILY HPI Comments Details: Nile is a pleasant male. He has a patient of Dr. Peterson. He seen for the following urologic conditions - lower urinary tract symptoms - elevated PSA Elevated PSA MRI performed - Minimal scattered linear and wedge-shaped areas T2 hypointensity without corresponding was significant restricted diffusion are most compatible with changes of chronic prostatitis. No masslike lesion or areas of significant restricted diffusion or abnormal perfusion are appreciated. Small indeterminate lesion in the left transitional zone base PI-RADS 3 PSA - 10/22 3.7, 11/19 9.2 Prostate Biopsy - 02/19 NAD Lower urinary tract symptoms High postvoid residuals Prostate 60 cc PFSH Medical History Onychomycosis Erectile dysfunction Internal hemorrhoids Insomnia Hypertension BPH (benign prostatic hyperplasia) Surgical History (Updated 01/30/24 @ 08:48 by Isidra Atkins RN) H/O colonoscopy History of vasectomy Hx of tonsillectomy Family History Mother Leukemia Father Lung cancer Social History Patient Tobacco Use Status: Current someday Tobacco user Tobacco use type: Cigar Review of Systems Const All systems reviewed & are unremarkable except as noted in HPI and below Reports no additional complaints Resp Reports no additional complaints GI Reports no additional complaints Reports as per HPI Musc Reports no additional complaints Physical Exam Telemedicine evaluation Appropriate responses Regular breathing rate and rhythm HEENT Head: Yes normal to inspection Ears: hearing grossly normal bilaterally Eyes General: appearance normal, both eyes and all related structures Neck Neck: Yes normal visual inspection Chest Chest palpation & inspection: normal inspection of the chest Resp Effort & Inspection: normal respiratory effort and able to speak in complete sentences Telehealth Telehealth [facility]health [facility] Location of provider rendering services: practice address Location of patient: address on file Patient Identification confirmed using: Name, : Yes Telehealth method: video Patient verbally consented to treatment: Yes Patient verbally consented to billing insurance company: Yes Patient informed of any privacy concerns related to visit: Yes Minutes spent on Phone/Video with Pt.: 15 Assessment & Plan Assessment & Plan (1) Prostatitis: Code(s): N41.9 - Inflammatory disease of prostate, unspecified Category: Medical (2) Elevated PSA: Code(s): R97.20 - Elevated prostate specific antigen [PSA] Category: Medical Plan Six-month follow-up Orders: Orders Prostate Specific Antigen 6 Months R97.20 - Elevated prostate specific antigen [PSA] Patient Instructions: Imaging studies, laboratory and physical exam results were discussed and reviewed in detail. No major barriers to patient understanding were identified. An opportunity to ask questions regarding the treatment plan was provided. All questions were answered. The patient expressed understanding and agreement with the above treatment plan. The patient is aware they should contact our office by phone for worsening of their current condition or the appearance of new urologic symptoms. Compliance is encouraged with any medications and followup testing that is ordered. It is a privilege to participate in the urologic care of your patient. If you have any questions or concerns regarding treatment for the above conditions, or other urologic issues, please do not hesitate to contact me. The office telephone contact is [phone]. This note is constructed using voice recognition software. While every effort has been made to ensure accuracy veneer jointer errors may have been included. Yours sincerely, Dr Aaron Tena MD, [facility] - Urology Providers of Expert, Compassionate Care for the Genitourinary System Coding Level of Care Code Tele Est Pt Level 3 (67967) Diagnoses Prostatitis N41.9 Elevated PSA R97.20
== END 2024-02-14 10:51 | disposition home or self-care (01) ==
LOC: HO.HUSH 09:47
PROVIDERS: PCP Family Medicine; Visit Provider Urology
DX: N41.9 Inflammatory disease of prostate, unspecified (principal); R97.20 Elevated prostate specific antigen [PSA]
CPT/HCPCS: 99213

== ENCOUNTER → 2024-02-14 09:47 | Outpatient (BNVA) | payer BC, SELFPAY | PROVIDERS: PCP Family Medicine; Visit Provider Urology ==

== ENCOUNTER 2024-08-14 11:35 | Outpatient (AMB) | payer BC, SELFPAY ==
--- NOTE | 2024-08-14 11:35 | A.OFFVIS_ITS ---
Intake Visit Reasons: 6m/PSA(set) [facility] Intake Note: Patient is present for 6M/PSA Urology Medication:NONE Antibiotic Allergy:CIPROFLOXACIN Blood Thinner:NONE Java Software Engineer Required: No Allergies ciprofloxacin Allergy (Severe, Verified 08/14/24 11:35) Rash bactrim Allergy (Severe, Uncoded 08/14/24 11:35) Hives HPI Comments Details: Nile is a pleasant male. He has a patient of Dr. Peterson. He seen for the following urologic conditions - lower urinary tract symptoms - elevated PSA Six-month follow-up Elevated PSA MRI performed - Minimal scattered linear and wedge-shaped areas T2 hypointensity without corresponding was significant restricted diffusion are most compatible with changes of chronic prostatitis. No masslike lesion or areas of significant restricted diffusion or abnormal perfusion are appreciated. Small indeterminate lesion in the left transitional zone base PI-RADS 3 PSA - 10/22 3.7, 11/19 9.2, 08/21 2.8 Prostate Biopsy - 02/19 NAD Lower urinary tract symptoms High postvoid residuals Prostate 60 cc PFSH Medical History (Updated 08/14/24 @ 12:36 by Aaron Tena MD) Onychomycosis Erectile dysfunction Internal hemorrhoids Insomnia Hypertension BPH (benign prostatic hyperplasia) Surgical History (Updated 01/30/24 @ 08:48 by Isidra Atkins RN) H/O colonoscopy History of vasectomy Hx of tonsillectomy Family History Mother Leukemia Father Lung cancer Social History Patient Tobacco Use Status: Current someday Tobacco user Tobacco use type: Cigar Results AMB Urinalysis, Automated UA Leukoctes 0 Yes[place]/uL Last Edit by MARIELY Kebede on 08/14/24 11:53 UA Nitrite Negative Last Edit by MARIELY Kebede on 08/14/24 11:53 UA Urobilinogen 0.2 mg/dL Last Edit by MARIELY Kebede on 08/14/24 11:5 3 UA Protein 0 mg/dL Last Edit by MARIELY Kebede on 08/14/24 11:53 UA pH 6.0 Last Edit by MARIELY Kebede on 08/14/24 11:53 UA Blood 10 [place]/uL Last Edit by MARIELY Kebede on 08/14/24 11:53 UA Specific [place] 1.015 Last Edit by MARIELY Kebede on 08/14/24 11: 53 UA Ketone Negative Last Edit by MARIELY Kebede on 08/14/24 11:53 UA Bilirubin 0 mg/dL Last Edit by MARIELY Kebede on 08/14/24 11:53 UA Glucose 0 mg/dL Last Edit by MARIELY Kebede on 08/14/24 11:53 Results Reviewed Results Reviewed: Laboratory Last Values Urine pH (Auto) 6.0 08/14/24 11:52 Specific [place] (Auto) 1.015 08/14/24 11:52 Urine Protein (Auto) 0 mg/dL 08/14/24 11:52 Glucose (UA)(Auto) 0 mg/dL 08/14/24 11:52 Urine Ketones (Auto) Negative 08/14/24 11:52 Urine Blood (Auto) 10 [place]/uL 08/14/24 11:52 Urine Nitrite (Auto) Negative 08/14/24 11:52 Urine Bilirubin (Auto) 0 mg/dL 08/14/24 11:52 Urine Urobilinogen (Auto) 0.2 mg/dL 08/14/24 11:52 Leukocyte Esterase (Auto) 0 [place]/uL 08/14/24 11:52 Assessment & Plan Assessment & Plan (1) Elevated PSA: Code(s): R97.20 - Elevated prostate specific antigen [PSA] Category: Medical (2) Erectile dysfunction: Code(s): N52.9 - Male erectile dysfunction, unspecified Category: Medical Orders: Orders AMB Urinalysis Automated Today Z13.9 - Encounter for screening, unspecified Coding Diagnoses Elevated PSA R97.20 Erectile dysfunction N52.9
== END 2024-08-14 12:43 | disposition home or self-care (01) ==
PROVIDERS: PCP Family Medicine; Visit Provider Urology
DX: Z13.9 Encounter for screening, unspecified (principal)

== ENCOUNTER 2024-10-12 13:18 | Outpatient (AMB) | payer BC, SELFPAY ==
--- NOTE | 2024-10-12 13:18 | A.OFFVIS_ITS ---
Intake Visit Reasons: 2M Med Review(Tadalafil) Intake Note: Patient is present for 2M MED REVIEW Urology Medication:TADALAFIL Antibiotic Allergy:BACTRIM,CIPROFLOXACIN Blood Thinner:NONE Makeup Instructor Required: No Allergies ciprofloxacin Allergy (Severe, Verified 10/12/24 13:19) Rash bactrim Allergy (Severe, Uncoded 10/12/24 13:19) Hives HPI Comments Details: Nile is a pleasant male. He has a patient of Dr. Peterson. He seen for the following urologic conditions - lower urinary tract symptoms - elevated PSA - erectile dysfunction Two month follow-up trial daily tadalafil Did have some benefit Also tried using penile constriction band with some success Will add on 20 mg on demand medications Encouraged to allow his partner to try them Two-month follow-up tele Elevated PSA MRI performed - Minimal scattered linear and wedge-shaped areas T2 hypointensity without corresponding was significant restricted diffusion are most compatible with changes of chronic prostatitis. No masslike lesion or areas of significant restricted diffusion or abnormal perfusion are appreciated. Small indeterminate lesion in the left transitional zone base PI-RADS 3 PSA - 10/22 3.7, 11/19 9.2, 08/21 2.8 Prostate Biopsy - 02/19 NAD Lower urinary tract symptoms High postvoid residuals Prostate 60 cc On tadalafil 5 mg daily PFSH Medical History (Updated 08/14/24 @ 12:36 by Aaron Tena MD) Onychomycosis Erectile dysfunction Internal hemorrhoids Insomnia Hypertension BPH (benign prostatic hyperplasia) Surgical History (Updated 01/30/24 @ 08:48 by Isidra Atkins RN) H/O colonoscopy History of vasectomy Hx of tonsillectomy Family History Mother Leukemia Father Lung cancer Social History Patient Tobacco Use Status: Current someday Tobacco user Tobacco use type: Cigar Review of Systems Const All systems reviewed & are unremarkable except as noted in HPI and below Reports no additional complaints Resp Reports no additional complaints GI Reports no additional complaints Reports as per HPI Musc Reports no additional complaints Physical Exam Telemedicine evaluation Appropriate responses Regular breathing rate and rhythm HEENT Head: Yes normal to inspection Ears: hearing grossly normal bilaterally Eyes General: appearance normal, both eyes and all related structures Neck Neck: Yes normal visual inspection Chest Chest palpation & inspection: normal inspection of the chest Resp Effort & Inspection: normal respiratory effort and able to speak in complete sentences Telehealth Telehealth Location of provider rendering services: practice address Location of patient: address on file Patient Identification confirmed using: Name, : Yes Telehealth method: voice only Patient verbally consented to treatment: Yes Patient verbally consented to billing insurance company: Yes Patient informed of any privacy concerns related to visit: Yes Assessment & Plan Assessment & Plan (1) Erectile dysfunction: Code(s): N52.9 - Male erectile dysfunction, unspecified Category: Medical (2) BPH (benign prostatic hyperplasia): Code(s): N40.0 - Benign prostatic hyperplasia without lower urinary tract symptoms Category: Medical Plan Trial on demand medications Two month follow-up Medications: New tadalafil On demand medication take 60 minutes before intended activity [facility] [employer] [facility] [id number] 20 mg PO ONCE 30 days PRN 30 tabs 0RF sexual activity N52.9 - Male erectile dysfunction, unspecified Patient Instructions: This note is constructed using voice recognition software. While every effort has been made to ensure accuracy director hydrogen storage engineering errors may have been included. Imaging studies, laboratory and physical exam results were discussed and reviewed in detail. No major barriers to patient understanding were identified. An opportunity to ask questions regarding the treatment plan was provided. All questions were answered. The patient expressed understanding and agreement with the above treatment plan. The patient is aware they should contact our office by phone for worsening of their current condition or the appearance of new urologic symptoms. Compliance is encouraged with any medications and followup testing that is ordered. It is a privilege to participate in the urologic care of your patient. If you have any questions or concerns regarding treatment for the above conditions, or other urologic issues, please do not hesitate to contact me. The office telephone contact is [phone]. Sincerely, Dr Aaron Tena MD, [facility] - Urology Compassionate Specialist Care for the Genitourinary System Coding Level of Care Code Tele Est Pt Level 4 (39773) Diagnoses Erectile dysfunction N52.9 BPH (benign prostatic hyperplasia) N40.0
--- OUTSIDE RECORDS SUMMARY | 2024-10-12 13:31 | XMS_ITS | Clinical Summary ---
Author Organization [facility] Address [address] [place] [address] Phone Care Team Providers Care Oil Changer Name Role Phone Trixie Maher DO Primary Care Provider [phone] Allergies Active Allergy Reactions Criticality Noted Date Comments Sulfamethoxazole-Trimethop rim 02/03/2024 Other Reaction(s): Rash/Dermatitis Medications sildenafiL (VIAGRA) 100 mg tablet Take 1 Tablet by mouth as needed for Erectile Dysfunction. 4 Active diclofenac (VOLTAREN) 1 % topical gel Apply 4 g topically 4 times daily as needed (pain). 4 Active lisinopriL (PRINIVIL,ZESTR IL) 5 mg tablet Take 1 Tablet by mouth daily. 4 Active acetaminophen (TYLENOL 8 HOUR) 650 mg 8 hr tablet Take 1 tablet (650 mg total) by mouth every 8 (eight) hours if needed. 4 Active Active Problems Problem Noted Date Diagnosed Date Pure hypercholesterolemia 02/03/2024 Class 1 obesity due to excess calories in adult 08/01/2023 Obesity (BMI 30-39.9) 01/31/2023 Lumbar radiculopathy 01/28/2023 RAQUEL (obstructive sleep apnea) 08/05/2022 BPH (benign prostatic hyperplasia) 04/28/2018 Hypertension 04/28/2018 Internal hemorrhoids 04/28/2018 Onychomycosis due to dermatophyte 09/05/2015 Insomnia 07/16/2014 ED (erectile dysfunction) 10/16/2010 Encounters Date Type Department Care Team Description 10/01/2024 10:00 AM EST Consult Orthopedic Surgery - [place] [address] [facility] [address] [phone] Toro Quiñones MD Arthritis of knee (Primary Dx); Complex tear of medial meniscus of right knee as current injury, initial encounter 07/30/2024 8:45 AM EST Office Visit Orthopedics [place] [id number] [place] [address] Felipe Malcolm PA Complex tear of medial meniscus of right knee as current injury, initial encounter (Primary Dx) 07/13/2024 5:31 PM EST - 07/13/2024 11:59 PM EST Hospital Encounter [facility] MRI [address] [place] [phone] Unspecified internal derangement of right knee Discharge Disposition: Home or Self Care from Last 3 Months Immunizations Name Administration Dates Next Due Pneumococcal polysaccharide 23 valent (Pneumovax 23) 2yo and older 04/09/2016 Tdap Tetanus diptheria acell ular pertussis (Boostrix; Adacel) 7yo and older 10/03/2020 Surgical History Surgery Date Site/Laterality Comments TONSILLECTOMY PROCEDURE: HISTORICAL TONSILLECTOMY VASECTOMY PROCEDURE: HISTORICAL VASECTOMY Medical History Medical History Date Comments BPH (benign prostatic hyperplasia) 04/28/2018 DX:BPH (benign prostatic hyperplasia) ED (erectile dysfunction) 10/16/2010 DX:ED (erectile dysfunction) Hypertension 04/28/2018 DX:Hypertension Insomnia 07/16/2014 DX:Insomnia Internal hemorrhoids 04/28/2018 DX:Internal hemorrhoids Onychomycosis due to dermatophyte 09/05/2015 DX:Onychomycosis due to dermatophyte 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 DX:Proctalgia f ugax Shoulder pain, bilateral DX:Shou lder pain, bilateral Family History Medical History Relation Name Comments Lung cancer Father Leukemia Mother Relation Name Status Comments Father Mother Social History Tobacco Use Types Packs/Day Years Used Date Smoking Tobacco: Never Smokeless Tobacco: Never Tobacco Cessation:Counseling Given: Not Answered Alcohol Use Standard Drinks/Week Comments Yes 4 (1 standard drink = 0.6 oz pur e alcohol) Sex and Gender Information Value Date Recorded Sex Assigned at Not on file Legal Sex Male 1:40 AM EST Gender Identity Not on file Sexual Orientation Not on file Obstetrics History Last Filed Vital Signs Vital Sign Reading Time Taken Comments Blood Pressure 130/78 02/06/2024 10:17 AM EDT Pulse 91 02/06/2024 9:46 AM EDT Temperature - - Respiratory Rate 16 07/30/2024 8:37 AM EST Oxygen Saturation - - Inhaled Oxygen Concentration - - Weight 113 kg (250 lb) 10/01/2024 9:59 AM EST Height 180.3 cm (5' 11 ) 10/01/2024 9:59 AM EST Body Mass Index 34.87 10/01/2024 9:59 AM EST Plan of Treatment Upcoming Encounters Date Type Department Care Team (Late st Contact Info) Description 11/23/2024 1:00 PM EDT Office Visit Internal Medicine - [facility] [address] [place] [address] Trixie Maher DO [address] [place] [address] Health Maintenance Due Date Last Done Comments Hepatitis B Vaccines (1 of 3 - 19+ 3-dose series) 1985 Zoster Vaccines (1 of 2) 2016 Pneumococcal Vaccine: 50+ Years (2 of 2 - PCV) 04/09/2017 04/09/2016 Depression Screening 08/01/2022 HIV Screening 08/01/2022 Social Influencers of Health Screening 08/01/2022 COVID-19 Vaccine (3 - 2023-2 5 season) 2024 07/20/2021, 11/14/2020 Influenza Vaccine (#1) 2024 Hypertension/CHF/CAD Annual BMP Blood Test 08/02/2024 08/02/2023 Colorectal Cancer Screening: Colonoscopy 05/28/2026 05/28/2016 Cholesterol Screening (Lipid Panel) 08/02/2028 08/02/2023 DTaP,Tdap,and Td Vaccines (2 - Td or Tdap) 10/03/2030 10/03/2020 Pneumococcal Vaccine: Pediatrics (0 to 5 Years) and At-Risk Patients (6 to 64 Years) Aged Out 04/09/2016 No longer eligible b ased on patient's age to complete this topic Hepatitis C Screening Completed 10/10/2020 HIB Vaccines Aged Out No longer eligi ble based on patient's age to complete this topic HPV Vaccines Aged Out No longer eligi ble based on patient's age to complete this topic Hepatitis A Vaccines Aged Out No long er eligible based on patient's age to complete this topic IPV Vaccines Aged Out No longer eligi ble based on patient's age to complete this topic MMR Vaccines Aged Out No longer eligi ble based on patient's age to complete this topic Meningococcal ACWY Vaccine Aged Out N o longer eligible based on patient's age to complete this topic Meningococcal B Vacine Aged Out No lo nger eligible based on patient's age to complete this topic RSV Immunization Patients Under 20 months Aged Out No longer eligible b ased on patient's age to complete this topic Varicella Vaccines Aged Out No longer eligible based on patient's age to complete this topic Procedures Procedure Name Priority Date/Time Associated Diagnosis Comments XR KNEE 1-2 VIEWS RIGHT Routine 10/01/2024 10:02 AM EST Complex tear of medial meniscus of right knee as current injury, initial encounter PROSTATE SPECIFIC ANTIGEN DIAGNOSTIC Routine 08/13/2024 1:46 PM EST Elevated prostate specific antigen (PSA) MR KNEE WO CONTRAST RIGHT Routine 07/13/2024 6:17 PM EST Unspecified internal derangement of right knee ANNUAL BMP BLOOD TEST Routine 08/02/2023 LIPID PANEL Routine 08/02/2023 HEPATITIS C SCREENING Routine 10/10/2020 COLONOSCOPY Routine 05/28/2016 from Last 3 Months or Most Recently Relevant to Health Maintenance Results * XR Knee 1-2 Views Right (10/01/2024 10:02 AM EST) Anatomical Region Laterality Modality Lower Extremities, Knee Right Computed Radiography Narrative 10/01/2024 10:10 AM EST X-rays right knee October 01, 2024. ??Bilateral PA weightbearing views. ?? Right knee sunrise view. ??No acute osseous abnormalities. ??Early periarticular osteophyte formation seen of the lateral aspect of the patella on sunrise view. ??No significant tilt or subluxation. ??Bilateral medial compartment of both knees demonstrate early periarticular osteophyte formation. Toro Quiñones MD IMG XR PROCEDURES Final Result * Prostate specific antigen diagnostic (08/13/2024 1:46 PM EST) PSA 2.76 0.00 - 4.00 ng/mL LAB CHEMISTRY METHOD 08/13/2024 6:55 PM EST [facility] Blood Venous blood specimen / Unknown Venipuncture / Unknown 08/13/2024 1:46 PM EST 08/13/2024 1:46 PM EST Narrative [facility] - 08/13/2024 6:55 PM EST The Siemens Advia Centaur Chemiluminescent Immunoassay is used. Results obtained with different assay methods or kits cannot be used interchangeably. Results cannot be interpreted as absolute evidence of the presence or absence of malignant disease. Aaron Tena MD LAB BLOOD ORDERABLES Final Re sult [facility] [address] [place] [address], * MR Knee wo Contrast Right (07/13/2024 6:17 PM EST) Anatomical Region Laterality Modality Lower Extremities, Knee Right Magnetic Resonance 07/16/2024 1:16 PM EST Impressions 07/16/2024 2:12 PM EST Complex tear of the medial meniscus. Full-thickness cartilage loss in the medial compartment. Mild cartilage loss in the lateral and patellofemoral compartment. Moderate joint effusion. -------- FINAL REPORT -------- Dictated By: Bin Anton Dictated Date: 07/16/2024 13:16 ET Assigned Physician: Bin Anton Reviewed and Electronically Signed By: Bin Anton Signed Date: 07/16/2024 14:12 ET Workstation ID: [id number] Transcribed By: Self Edit Transcribed Date: 07/16/2024 13:16 ET Narrative 07/16/2024 2:12 PM EST MRI of the right knee, 07/16/2024 2:07 PM. HISTORY: RT KNEE DERANGEMENT. COMPARISON: None. TECHNIQUE: Multiplanar multisequence MRI of the left knee without intravenous contrast administration. FINDINGS: MENISCI: Lateral: Normal. Medial: There is a complex tear predominantly involving the tibial articular surface of the posterior body segment and posterior horn. ??A small amount of meniscal tissue is flipped inferiorly in the gutter. CRUCIATE LIGAMENTS: Anterior and posterior cruciate ligaments are normal. COLLATERAL LIGAMENTS: The medial collateral ligament and lateral collateral ligamentous complex are normal. ARTICULAR CARTILAGE: Lateral compartment: Mild cartilage irregularity involving the tibial plateau to a greater degree than the femoral condyle. Medial compartment: Full-thickness cartilage loss along the weightbearing surface of the femoral condyle and along the tibial plateau with reactive marrow edema. Patellofemoral compartment: Mild cartilage fissuring. OTHER: Moderate joint effusion. ??Mild edema in the prepatellar subcutaneous fat. Procedure Note Bin Anton MD - 07/16/2024 MRI of the right knee, 07/16/2024 2:07 PM. HISTORY: RT KNEE DERANGEMENT. COMPARISON: None. TECHNIQUE: Multiplanar multisequence MRI of the left knee withoutintravenous contrast administration. FINDINGS: MENISCI: Lateral: Normal. Medial: There is a complex tear predominantly involving the tibialarticular surface of the posterior body segment and posterior horn. Asmall amount of meniscal tissue is flipped inferiorly in the gutter. CRUCIATE LIGAMENTS: Anterior and posterior cruciate ligaments arenormal. COLLATERAL LIGAMENTS: The medial collateral ligament and lateralcollateral ligamentous complex are normal. ARTICULAR CARTILAGE: Lateral compartment: Mild cartilage irregularity involving the tibialplateau to a greater degree than the femoral condyle. Medial compartment: Full-thickness cartilage loss along the weightbearingsurface of the femoral condyle and along the tibial plateau with reactivemarrow edema. Patellofemoral compartment: Mild cartilage fissuring. OTHER: Moderate joint effusion. Mild edema in the prepatellarsubcutaneous fat. IMPRESSION: Complex tear of the medial meniscus. Full-thickness cartilage loss in the medial compartment. Mild cartilage loss in the lateral and patellofemoral compartment. Moderate joint effusion. -------- FINAL REPORT -------- Dictated By: Bin Anton Dictated Date: 07/16/2024 13:16 ET Assigned Physician: Bin Anton Reviewed and Electronically Signed By: Bin Anton Signed Date: 07/16/2024 14:12 ET Workstation ID: [id number] Transcribed By: Self Edit Transcribed Date: 07/16/2024 13:16 ET Result [facility] Felipe SHERMAN IMG MRI PROCEDURES Final Result * Annual BMP Blood Test (08/02/2023) [facility] Annual BMP Blood Test Abstracted Result [facility] Provider HEALTH MAINTENANCE Final Result * (ABNORMAL) Lipid panel (08/02/2023) [facility] LDL/HDL Ratio 4 0 - 4 Triglycerides 106 0 - 150 mg/dL Cholesterol 202(A) 0 - 200 mg/dL HDL 56 >=40 mg/dL LDL Cholesterol 125(A) 0 - 100 mg/dL Blood Venous blood specimen / Unknown Result [facility] Provider LAB BLOOD ORDERABLES Isabela l Result * Hepatitis C Screening (10/10/2020) [facility] Hepatitis C Screening Abstracted Result [facility] Provider HEALTH MAINTENANCE Final Result * Colonoscopy (05/28/2016) [facility] Colonoscopy No interpretation , Abstracted Anatomical Region Laterality Modality Other Result [facility] Provider HEALTH MAINTENANCE Final Result from Last 3 Months or Most Recently Relevant to Health Maintenance Insurance [facility] Care Teams Oil Changer Relationship Specialty Start Date End Date Trixie Maher DO [address] [facility] [place] [address] PCP - General Internal Medicine 07/20/24
--- OUTSIDE RECORDS SUMMARY | 2024-10-12 13:31 | XMS_ITS | Encounter Summary ---
[facility] Address [address] [place] [address] Care Team Providers Care Counselor Marriage And Family Name Role Phone Trixie Maher DO Primary Care Provider [phone] Reason for Visit * Reason Comments Pain * Consultation (Routine) - Closed Specialty Diagnoses / Procedures Referred By Contact Referred To Contact Orthopaedics / Orthopaedic Surgery Diagnoses Complex tear of medial meniscus of right knee as current injury, initial encounter Felipe Malcolm PA [address] [place] [address] Phone: tel: fax: Toro Quiñones MD [address] [address] Phone: tel: fax: Referral ID Status Reason Start Date Expiration Date V isits Requested Visits Authorized [id number] Closed Specialty Services Required 07/30/2024 07/30/2025 1 1 Encounter Details Date Type Department Care Team (Late st Contact Info) Description 10/01/2024 10:00 AM EST Consult Orthopedic Surgery - [place] [address] [phone] Toro Qiuñones MD [address] [address] Arthritis of knee (Primary Dx); Complex tear of medial meniscus of right knee as current injury, initial encounter Social History Tobacco Use Types Packs/Day Years Used Date Smoking Tobacco: Never Smokeless Tobacco: Never Alcohol Use Standard Drinks/Week Comments Yes 4 (1 standard drink = 0.6 oz pur e alcohol) Sex and Gender Information Value Date Recorded Sex Assigned at Not on file Legal Sex Male 1:40 AM EST Gender Identity Not on file Sexual Orientation Not on file documented as of this encounter Last Filed Vital Signs Vital Sign Reading Time Taken Comments Blood Pressure - - Pulse - - Temperature - - Respiratory Rate - - Oxygen Saturation - - Inhaled Oxygen Concentration - - Weight 113 kg (250 lb) 10/01/2024 9:59 AM EST Height 180.3 cm (5' 11 ) 10/01/2024 9:59 AM EST Body Mass Index 34.87 10/01/2024 9:59 AM EST documented in this encounter Progress Notes * Toro Quiñones MD - 10/01/2024 10:00 AM EST Reason For Visit: Pain of the Right Knee Patient: Nile Linares : 1965 VISIT DATE: 10/01/2024 HPI: Nile Linares is a 59 y.o. year old male who presents follow up on his right knee. Had a period of pain which was treated with activity modification and physical therapy. Currently he is doing much better. He did have an MRI which demonstrated significant medial and patellofemoral arthrosis as well as degenerative meniscus tearing. Mechanical symptoms. He has never had surgery on his knee. ROS: GENERAL: negative MUSCULOSKELETAL: See HPI The remainder of the review of systems is noncontributory Allergies: Allergies Allergen Reactions Sulfamethoxazole-Trimethoprim Other Reaction(s): Rash/Dermatitis Past Medical History: has a past medical history of BPH (benign prostatic hyperplasia) (04/28/2018),ED (erectile dysfunction) (10/16/2010), Hypertension (04/28/2018), Insomnia (07/16/2014), Internal hemorrhoids (04/28/2018), Onychomycosis due to dermatophyte (09/05/2015), Proctalgia fugax (05/20/2016), and Shoulder pain, bilateral. Social History: Social History Tobacco Use Smoking status: Never Smokeless tobacco: Never Substance Use Topics Alcohol use: Yes Alcohol/week: 4.0 standard drinks of alcohol Past Surgeries: Past Surgical History: Procedure Laterality Date TONSILLECTOMY PROCEDURE: HISTORICAL TONSILLECTOMY VASECTOMY PROCEDURE: HISTORICAL VASECTOMY Medications: No outpatient medications have been marked as taking for the 10/01/24 encounter (Consult) with Toro Graham MD. Physical Exam: Vitals: 10/01/24 0959 Weight: 113 kg (250 lb) Height: 1.803 m (71 ) APPEARANCE: Alert, oriented, no acute distress RIGHTKNEE KNEE EXAM: RIGHT Inspection: Mild varus alignment. No significant deformity. No significant atrophy. Palpation: Brown's cyst appreciated in the posterior aspect of the knee. No significant joint line or patellofemoral tenderness. ROM: Active near full range of motion Passive near full range of motion Neurovascular: No gross deficits distally Strength: Normal strength Special Tests: Ligamentously stable. No obvious meniscal findings. Imaging: XR Knee 1-2 Views Right X-rays right knee October 01, 2024. Bilateral PA weightbearing views. Right knee sunrise view. No acute osseous abnormalities. Early periarticular osteophyte formation seen of the lateral aspect of the patella on sunrise view. No significant tilt or subluxation. Bilateral medial compartment of both knees demonstrate early periarticular osteophyte formation. Assessment and Plan: 1. Arthritis of knee 2. Complex tear of medial meniscus of right knee as current injury, initial encounter Lengthy discussion about his arthritis. Talked about activity modification, exercise, weight loss, crosstraining. If his knee becomes symptomatic again and he cannot control his symptoms, he can contact us for any of his providers and we can consider a cortisone injection. He could be a candidate for viscosupplementation as well in the future. Discussed the possibility of knee replacement in the future and he would like to avoid that at all costs. Physical Therapy: Perform HEP Toro Quiñones MD documented in this encounter Plan of Treatment Upcoming Encounters Date Type Department Care Team (Late st Contact Info) Description 11/23/2024 1:00 PM EDT Office Visit Internal Medicine - [place] [address] [place] [address] Trixie Maher, [address] [place] [address] documented as of this encounter Results * XR Knee 1-2 Views Right [...] both knees demonstrate early periarticular osteophyte formation. us Toro Quiñones MD IMG XR PROCEDURES Final Result documented in this encounter Visit Diagnoses Diagnosis Arthritis of knee- Primary Unspecified arthropathy, lower leg Complex tear of medial meniscus of right knee as current injury, initial encounter documented in this encounter Orders Outpatient Referral Count Last Ordered Date Fir st Ordered Date AMB REFERRAL TO ORTHOPEDIC SURGERY 1 2024 documented in this encounter Care Teams Counselor Marriage And Family Relationship Specialty Start Date End Date Trixie Maher DO [facility] [place] [address] PCP - General Internal Medicine 07/20/24 documented as of this encounter
== END 2024-10-12 13:42 | disposition home or self-care (01) ==
LOC: HO.HUSH 13:18
PROVIDERS: PCP Family Medicine; Visit Provider Urology
DX: N52.9 Male erectile dysfunction, unspecified (principal); N40.0 Benign prostatic hyperplasia without lower urinary tract symptoms
CPT/HCPCS: 99214